=== PATIENT | female | born 1940 | race Caucasian/White ===

== ENCOUNTER 2018-10-06 08:19 | Day surgery (SDC) | payer MEDICARE, BC ==
--- NOTE | 2018-10-06 07:02 | History and Physical - [place] ---
CHIEF COMPLAINT/HISTORY OF CHIEF COMPLAINT: This patient presents with a history of an intractable lumbar radiculopathy. Due to the failure of therapy and the success of a spinal cord stimulator trial which was conducted on 09/13/18 she presents for permanent implantation. PAST MEDICAL HISTORY: Hypertension. PAST SURGICAL HISTORY: Appendectomy, gallbladder surgery, hysterectomy, bladder surgery, and tonsillectomy. MEDICATIONS ON ADMISSION: List to be provided. ALLERGIES: SULFA, AUGMENTIN, ALEVE AND VARIOUS BLOOD PRESSURE MEDICATIONS. FAMILY/PSYCHOSOCIAL HISTORY: Social history - Caffeine. Family history - Asthma, diabetes, coronary artery disease, and hypertension. SYSTEMS REVIEW: The patient is appropriate in no acute distress. The remainder of the systems review is positive for neuropathy, glasses, dentures, blood pressure, depression, and difficulty sleeping. PHYSICAL EXAMINATION: Height is 5'2", weight is 150. No vital signs. HEENT: Within normal limits. LUNGS: Clear. HEART: Rapid and regular. ABDOMEN: Nontender. MUSCULOSKELETAL: Examination of the musculoskeletal system shows the primary pain pattern extending across the back and into the legs bilateral, right greater than left. Evaluation of the lower extremities shows some mild sensory loss and mild weakness, right greater than left. Ambulation - No assistive device utilized. NEUROLOGIC: Cranial nerves are intact. IMPRESSION: LUMBAR RADICULOPATHY, ICD-10 CODE M54.16 AND M54.17. PLAN: The patient is here for implantation of a permanent spinal cord stimulator after a successful trial and the failure of all other conservative therapies. The procedure will be considered outpatient although an overnight stay will be evaluated. The potential risks, side effects and complications have all been reviewed and discussed. JOB NUMBER: [id number] MTDD
[~2018-10-06 08:19] MED LIST: ACETAMINOPHEN 1,000 MG/100 ML BTL IVPB ONE; CLINDAMYCIN 600MG/50ML PREMIX 600 MG/50 ML BAG IVPB ONE; FAMOTIDINE 20MG TABLET PO ONE; MECLIZINE 25 MG TABLET PO ONE; METOCLOPRAMIDE 10 MG TABLET PO ONE
[2018-10-06] MEDS ORDERED: MIDAZOLAM HCL 2MG/2ML VIAL IV ONE (08:20)
[2018-10-06] MEDS ORDERED: LIDOCAINE 2% MDV (20MG/ML) 20ML VIAL IV ONE (08:20)
[2018-10-06] MEDS ORDERED: PROPOFOL 10 MG/ML VIAL IV ONE (08:20)
[2018-10-06] MEDS ORDERED: FENTANYL PF 100MCG/2ML VIAL IV ONE (08:20)
[2018-10-06] MEDS ORDERED: RINGERS SOLUTION,LACTATED 1,000 ML IV ONE (09:00)
[2018-10-06] MEDS ORDERED: BUPIVACAINE 0.5% W/EPI MPF 30 ML VIAL SQ ONE ×2 (11:50)
[2018-10-06] MEDS ORDERED: LIDOCAINE 1% W/EPI 1:100,000 MDV 20 ML VIAL SQ ONE ×2 (11:50)
--- NOTE | 2018-10-06 17:30 | Operative Note ---
DATE OF SURGERY: 10/06/2018 PREOPERATIVE DIAGNOSIS: Intractable lumbar radiculopathy, ICD10 code M54.16 and M54.17. OPERATION: 1. Fluoroscopic-guided epidural access left T11-12, placement of spinal cord stimulator lead 1 [employer] Infinion 16, 6 electrodes positioned left T7. 2. Fluoroscopic-guided epidural access left T12-L1, placement of spinal cord stimulator lead 2 [employer] Infinion 16, 6 electrodes positioned right T7. 3. Complex programming of lead 1 over 20 minutes followed by complex programming of lead 2 over 20 minutes. 4. Incision, subcutaneous dissection, and anchoring of leads 1 and 2 to supraspinous fascia with a [employer] locking anchor and nonabsorbable suture. 5. Incision, subcutaneous dissection, and creation of subcutaneous pouch right flank for placement of generator, site picked by patient. Generator identified as a [employer] programmable rechargeable WaveWriter. 6. Tunneling between pouches, placement of external portion of lead 1 and lead 2 into generator pouch, each lead interfaced with generator. 7. Closure of incision using Stratafix suture, 2-0 fascia, 3-0 skin, Dermabond closure. 8. Complex recovery room programming internal generator home use 2 stimulators 20 minutes. SURGEON: Ankit Guerra DO ANESTHESIA: Local with sedation. ANESTHESIA PROVIDER: Salvatore Lai INDICATION: This patient presents with a history of intractable lumbar radiculopathy. Due to the failure of all therapies, a spinal cord stimulator trial was conducted with 75% plus pain control. Due to the failure of therapies and the success of the trial, the patient presents for implantation of permanent system. PROCEDURE: Intravenous line, vital sign monitoring, IV sedation by Anesthesia. Patient positioned prone. Sterile prep, sterile technique. From the left, the epidural interspace at 11-12 and 12-1 both infiltrated with local. Two curved access Epimed needles with loss of resistance into the space. Atraumatic. No blood, no CSF. At 11-12, spinal cord stimulator lead 1, a [employer] Infinion 16, 6 electrodes positioned left of T7. With the access at 12-1, spinal cord stimulator lead 2, [employer] Infinion 16, 6 electrodes positioned right at T7. Complex programming of lead 1 over 20 minutes followed by complex programming of lead 2 over 20 minutes resulting in complete pattern stimulation across the back and into the legs. Patient indicating we had all the areas of the pain. She was given the option to implant and continue to program or remove. She opted to implant. The question was repeated with the same response. She was then re-sedated. The skin above and below the needles infiltrated. Incision was made and subcutaneous dissection was conducted to the supraspinous fascia. Each of the leads was then anchored to the supraspinous fascia once the needles had been removed with a [employer] locking anchor and nonabsorbable suture. At the right flank, a site which was picked by the patient for the generator, [employer] programmable rechargeable WaveWriter, skin infiltrated and incision made and subcutaneous dissection was conducted to form a pouch of suitable size and depth for the generator. A tunneling tool was used to carry the leads in the generator pouch, and then each lead was interfaced to the generator. Antibiotic irrigation and Bovie for hemostasis. The generator was then placed into the pouch. The leads were placed into their own pouch, and then both incisions were closed using Stratafix suture, 2-0 fascia, and 3-0 skin. Dermabond closure was then placed approximating the edges of both wounds. She was transferred to recovery room stable. No side effects from the procedure or sedation. When fully awake and alert, complex programming of the 2 leads with the generator was then performed in the recovery area over 20 minutes reestablishing stimulation and pain control to all the appropriate areas. She was instructed on use of the system, provided with information on error messaging, and then prepared for discharge. DISCHARGE INSTRUCTIONS: 1. The sites will remain clean and dry. No showering or bathing in any way that would disrupt dressings. If it happens, contact the clinic. 2. Standard medications resumed including the antibiotic Levaquin 500 mg once a day for 14 days. 3. The office will contact the patient in the next 24-48 hours to set up a time in 7-10 days for us to evaluate the sites. Until then, she is to keep her activities low. She can shower but not sit in water because of the Dermabond. It is water impermeable. All other instructions were provided with numbers to contact if problems given. She will be discharged. ZULMA
--- NOTE | 2018-10-07 13:25 | RADIOLOGY REPORT ---
EXAM: THORACOLUMBAR SPINE, SINGLE VIEW HISTORY: SPINAL CORD STIMULATOR IMPLANT. TECHNIQUE: A single view of the thoracolumbar spine was obtained. Comparison: None. FINDINGS: There is a spinal cord stimulator device overlying the right abdomen. The leads project to the T7 level. Moderate spondylosis. IMPRESSION: SPINAL CORD STIMULATOR DEVICE WITH LEADS PROJECTING TO THE T7 LEVEL. JOB NUMBER: [id number] MTDD
== END 2018-10-06 13:29 | disposition home or self-care (01) ==
LOC: SUR 08:19
PROVIDERS: ATTEND Pain Medicine Interventional Pain Medicine
DX: M54.16 Radiculopathy, lumbar region (principal); M54.17 Radiculopathy, lumbosacral region; I10 Essential (primary) hypertension; E11.9 Type 2 diabetes mellitus without complications; E78.00 Pure hypercholesterolemia, unspecified; F17.210 Nicotine dependence, cigarettes, uncomplicated
CPT/HCPCS: 36416; 72020; 82948; 93005; 95972; C1820; C1883; J7120